=== PATIENT | male | born 1960 | race Caucasian/White ===

== ENCOUNTER 2020-05-12 20:03 | Observation (INO) | payer OTHER, SELFPAY ==
[2020-05-12 20:07] VITALS: BP 120/75; PULSE 71; RESP 20; TEMP 36.4; O2SAT 100
[2020-05-12 20:24] VITALS: BP 141/86; PULSE 84; RESP 20; O2SAT 100
--- NOTE | 2020-05-12 20:31 | ED.GENADULT ---
HPI - General Adult General Chief complaint: Unspecified Stated complaint: food stuck in throat Time Seen by Provider: 05/12/20 20:18 Source: patient History of Present Illness HPI narrative: Patient is a a 60 y/o male complaining of food stuck in throat starting about 6:00 PM tonight. He states that he was eating a piece of steak and then it got stuck. He tried drinking warm water and cold, which did not help. He is unable to keep water down. He denies any pain. Related Data Home Medications Medication Instructions Recorded Confirmed lisinopril 20 mg PO HS 05/12/20 05/12/20 Allergies Allergy/AdvReac Type Severity Reaction Status Date / Time No Known Allergies Allergy Verified 03/25/20 13:47 Review of Systems Constitutional: Constitutional: Denies chills, Denies fever(s), Denies headache(s) and Denies weakness Eyes: Eyes: Denies blurry vision ENT: Denies headache(s) and Denies neck pain Cardiovascular: Cardiovascular: Denies chest pain and Denies dyspnea Respiratory: Respiratory: Denies cough and Denies dyspnea Gastrointestinal: Gastrointestinal: Reports as per HPI, Denies abdominal pain, Reports dysphagia, Denies diarrhea, Denies nausea, Denies vomiting and Reports other (unable to swallow) Genitourinary: Genitourinary: Denies hematuria and Denies dysuria Musculoskeletal: Musculoskeletal: Denies back pain and Denies neck pain Neurologic: Denies headache(s) and Denies weakness PMFSH Past Medical History Medical History Anxiety Basal cell carcinoma of upper back Diverticulosis GERD (gastroesophageal reflux disease) History of diverticulitis Hypertension Surgical History Surgical History History of basal cell carcinoma (BCC) excision 2017 Family History Family History Father Hypertension Mother Family history of malignant neoplasm of stomach Other Carcinoma of colon Social History Social History Social History: patient has never smoked, does not do marijuana, and does not do drugs. He drinks alcohol very rarely. He would like to be a full code. He designates his Miguelina as his surrogate decision maker if needed Smoking status: Never smoker Second hand tobacco smoke exposure: No Alcohol intake: never Substance use: never Substance use type: does not use Gender identity (if verbalized by the patient): Male Sexual Orientation (if Verbalized by the Patient): Straight or Heterosexual Spiritual care concerns: No Exam Const: General: no acute distress and well developed Orientation/consciousness: oriented to person, oriented to place, oriented to time and patient oriented x3 HENMT: Head: normocephalic Ears: external ears normal General nose exam: Normal external nose present Eyes: General: appearance normal, both eyes and all related structures Conjunctivae: conjunctivae normal Neck: Neck: normal visual inspection and full ROM Chest: Chest palpation & inspection: normal inspection of the chest and no tenderness Resp: Effort & Inspection: normal respiratory effort and able to speak in complete sentences Cardio: Rate: regular rate Rhythm: regular rhythm GI: GI Palp: No abdominal tenderness and Yes Soft to palpation Skin: General skin exam: normal color and turgor normal Neuro: General: oriented to person, oriented to place, oriented to time and patient oriented x3 Cognition (Neuro): normal cognition Extrem: General: normal to inspection, full ROM and no pedal edema Psych: Appearance: grossly normal Mental Status: mental status grossly normal Affect: normal affect Course Consultations Consultation #1: Discussed with Dr. Fields, who agrees to consult and will plan EGD in AM. Date: 05/12/20 Time: 21:43 Consultation #2: Discussed with Dr. Gordon
[2020-05-12 21:02] LABS: Basophils Absolute Auto 0.1 K/mm3 (0.0-0.1); Basophils Percent Auto 1.4 % (0.2-1.2); Eosinophils Absolute Auto 0.2 K/mm3 (0-0.3); Eosinophils Percent Auto 1.9 % (0-4.4); Hematocrit 44.3 % (42.0-52.0); Hemoglobin 15.8 g/dL (14.0-18.0); Immature Granulocyte Absolute 0.06 K/mm3 (0.00-0.031); Immature Granulocyte Percent A 0.7 % (0-0.5); Lymphocytes Absolute Auto 2.55 K/mm3 (0.9-3.2); Lymphocytes Percent Auto 31.6 % (18.3-44.2); Mean Corpuscular HGB Conc 35.7 g/dl (32-36); Mean Corpuscular Hemoglobin 31.5 pg (26-34); Mean Corpuscular Volume 88.4 fl (80-100); Mean Platelet Volume 9.7 fl (7.4-10.4); Monocytes Absolute Auto 1.1 K/mm3 (0.1-0.6); Monocytes Percent Auto 13.2 % (2.6-8.5); Neutrophils Absolute Auto 4.1 K/mm3 (1.3-6.7); Neutrophils Percent Auto 51.2 % (45.5-73.1); Platelet Count Result 251 k/mm3 (150-375); Red Blood Count 5.01 M/mm3 (4.6-6.20); Red Cell Distribution Width 12.6 % (11.5-14.5); White Blood Count 8.1 K/mm3 (4.5-10.0)
[2020-05-12] MEDS: GLUCAGON FOR INJ 1 MG VIAL IV PUSH (21:02)
[2020-05-12 21:12] LABS: Anion Gap 10 mmol/L (8-16); Blood Urea Nitrogen 21 mg/dL (9-20); Calcium 9.3 mg/dL (8.4-10.2); Carbon Dioxide 23 mmol/L (22-30); Chloride 102 mmol/L (98-107); Estimated CRCL calculation 64 ml/min; Estimated Glomerular Filt Rate > 60; Glucose 118 mg/dL (75-110); Potassium 4.4 mmol/L (3.4-5.0); Sodium 135 mmol/L (137-145)
[2020-05-12 21:38] VITALS: BP 124/82; PULSE 109; RESP 20; O2SAT 100
[2020-05-12 22:25] VITALS: BP 153/98; PULSE 74; RESP 20; O2SAT 100
--- NOTE | 2020-05-12 23:49 | ADMGEN ---
This patient, Joshua Franklin, was admitted to 2 Medical Room 245-. Patient/family oriented to hospital policies and general routines including ID bracelet, bed and alarms, visiting hours, pain management, procedures, bathroom and other care routines, personal items, smoking policy, room service/diet, and visiting hours. Valuables list has been completed. Information on how to activate the Rapid Response Team has been discussed. Patient/Family are encouraged to report perceived risks to care and to ask questions if they do not understand what they are told or what they should do.
[2020-05-12 23:54] VITALS: BP 138/73; PULSE 72; RESP 12; TEMP 36.8; O2SAT 100
[2020-05-12 23:56] VITALS: BMI 26.7
[2020-05-13] VITALS (7 sets, daily range): BP systolic 101–159; BP diastolic 60–82; PULSE 60–88; RESP 14–18; TEMP 36.7–37; O2SAT 97–99
--- NOTE | 2020-05-13 09:16 | PM.SD ---
Same Day Admit/Disch: HPI History of Present Illness Chief complaint: esophageal obstruction Narrative: Joshua Franklin is a 60 year old male With a past medical history hypertension who presented the emergency room for food bolus sensation after eating a steak at 6:00 p.m. last night. The patient states that he still has a sensation and is unable to drink liquids or swallow his saliva. He does not have any nausea or vomiting with this. He last had an EGD about 12 years ago and has had a dilation before he thinks. Prior to tonight's episode, he has had some issues with swallowing and things almost gets that but usually he can get it down. He has no history of longstanding GERD symptoms but says he does feel little discomfort was spicy foods. He does not smoke or chew tobacco. He last had a colonoscopy March 19, 2020 which was reported negative. He denies nausea, vomiting, fevers, chills, chest pain, shortness of breath, dysuria, black stools, leg swelling, rashes, headache or blurred vision. Of note, he had a throat biopsy by Dr. Huertas that he reports was okay. [facility] Past Medical History Medical History Anxiety Basal cell carcinoma of upper back Diverticulosis GERD (gastroesophageal reflux disease) History of diverticulitis Hypertension Surgical History Surgical History History of basal cell carcinoma (BCC) excision 2016 Family History Family History Father Hypertension Mother Family history of malignant neoplasm of stomach Other Carcinoma of colon Social History Social History Social History: patient has never smoked, does not do marijuana, and does not do drugs. He drinks alcohol very rarely. He would like to be a full code. He designates his Miguelina as his surrogate decision maker if needed Smoking status: Never smoker Second hand tobacco smoke exposure: No Alcohol intake: never Substance use: never Substance use type: does not use Gender identity (if verbalized by the patient): Male Sexual Orientation (if Verbalized by the Patient): Straight or Heterosexual Spiritual care concerns: No Same Day Admit/Disch: Med Pre-admit Medications Home Medications Medication Instructions Recorded Confirmed Type lisinopril 20 mg PO HS 05/12/20 05/12/20 History Exam Narrative: Exam Narrative: General:Well developed well nourished patient resting comfortably in bed in no acute distress HEENT: Normocephalic, atraumatic, PERRL, Sclerae anicteric, oral mucosa moist. Neck: Supple Resp: CTA Heart: RRR with no murmurs Abd: Soft, nondistended. Mild discomfort in the epigastric area.Positive bowel sounds Skin: Warm and dry Extremities: No swelling, erythema or pain to palpation Neuro: Alert and Oriented x4 . CN 2-12 intact. No focal neurological deficits. DS: Data Data Completed and Pending Labs on day of discharge: Labs from last 24 hours 05/12/20 05/12/20 20:52 20:52 WBC 8.1 RBC 5.01 Hgb 15.8 Hct 44.3 MCV 88.4 MCH 31.5 MCHC 35.7 RDW 12.6 Plt Count 251 MPV 9.7 Immature Gran % (Auto) 0.7 H Neut % (Auto) 51.2 Lymph % (Auto) 31.6 [place] % (Auto) 13.2 H Eos % (Auto) 1.9 Baso % (Auto) 1.4 H Lymph # (Auto) 2.55 [place] # (Auto) 1.1 H Eos # (Auto) 0.2 Baso # (Auto) 0.1 Abs Immat Gran (auto) 0.06 H Absolute Neuts (auto) 4.1 Absolute Nucleated RBC 0.0 Nucleated RBC % 0.0 Sodium 135 L Potassium 4.4 Chloride 102 Carbon Dioxide 23 Anion Gap 10 BUN 21 H Creatinine 1.20 Estim Creat Clear Calc 64 Estimated GFR > 60 Glucose 118 H Calcium 9.3 DS: Summary Hospital Course Reason for hospitalization: Food bolus Hospital Course: patient is a 60-year-old male who presented emergency room for sens
[2020-05-13] MEDS: SODIUM CHLORIDE 0.9% IV 1,000 ML 125 ML IV CONT ×2 (10:18)
--- NOTE | 2020-05-13 11:47 | WPDGICN ---
Assessment and Plan Assessment and plan (1) Dysphagia: Code(s): R13.10 - Dysphagia, unspecified Status: Acute Assessment and Plan: Plan is mikhail EGD to assess difficulty swallowing. (2) Food impaction of esophagus: Code(s): T18.128A - Food in esophagus causing other injury, initial encounter Status: Acute Assessment and Plan: Patient unable to eat or swallow with impaction in the esophagus plan is to place patient NPO an EGD will be performed. (3) GERD (gastroesophageal reflux disease): Code(s): K21.9 - Gastro-esophageal reflux disease without esophagitis Status: Acute Assessment and Plan: Continue anti-reflux measures patient may benefit from long-term PPI use. Other measures will be evaluated at the time of endoscopy. GI Consult Note Consult date/time: 05/13/20 11:47 HPI: Joshua Franklin is a 60 year old male Seen in evaluation at the request of the emergency room. Patient in usual state of health till eating steak last evening. He subsequently felt that this was lodged in the mid chest. He was unable to eat or swallow subsequently. He states he occasionally has had difficulty causing him to chew fluid more thoroughly. He typically will eat smaller pieces of food. He has a distant history of heartburn. He denies any weight loss or bleeding. He did have an endoscopy several years ago that was unremarkable. He had a recent colonoscopy in March of 2020 that was also unremarkable. Family history is Significant his mother had gastric cancer. Review of Systems Review of Systems: All systems reviewed & are unremarkable except as noted in HPI and below PMFSH Past Medical History Medical History Anxiety Basal cell carcinoma of upper back Diverticulosis GERD (gastroesophageal reflux disease) History of diverticulitis Hypertension Surgical History Surgical History History of basal cell carcinoma (BCC) excision 2017 Family History Family History Father Hypertension Mother Family history of malignant neoplasm of stomach Other Carcinoma of colon Social History Social History Social History: patient has never smoked, does not do marijuana, and does not do drugs. He drinks alcohol very rarely. He would like to be a full code. He designates his Miguelina as his surrogate decision maker if needed Smoking status: Never smoker Second hand tobacco smoke exposure: No Alcohol intake: never Substance use: never Substance use type: does not use Gender identity (if verbalized by the patient): Male Sexual Orientation (if Verbalized by the Patient): Straight or Heterosexual Spiritual care concerns: No Meds Home Medications and Allergies Home Medications Medication Instructions Recorded Confirmed Type lisinopril 20 mg PO HS 05/12/20 05/12/20 History Allergies Allergy/AdvReac Type Severity Reaction Status Date / Time No Known Allergies Allergy Verified 03/25/20 13:47 Vital Signs Vital Signs - 24 hr 05/12/20 20:07 05/12/20 20:24 05/12/20 21:38 Temperature 97.6 F Pulse Rate 71 84 109 H Respiratory Rate 20 20 20 Blood Pressure 120/75 141/86 H 124/82 Pulse Oximetry 100 100 100 05/12/20 22:25 05/12/20 23:54 05/13/20 04:00 Temperature 98.2 F 98.6 F Pulse Rate 74 72 76 Respiratory Rate 20 12 16 Blood Pressure 153/98 H 138/73 125/82 Pulse Oximetry 100 100 98 05/13/20 10:00 Temperature 98.6 F Pulse Rate 81 Respiratory Rate 14 Blood Pressure 159/77 H Pulse Oximetry 98 Exam Narrative: Exam Narrative: Physical exm reveals patient to be alert. Vital signs stable. HEENT exam unremarkable. He is anicteric. Lungs are clear to auscultation and percussion. Heart is without murmur or extra sounds.
--- NOTE | 2020-05-13 12:17 | PC.NURSE ---
To GI Lab per antonio, IV intact and saline locked. Report given to BUTCH Stoll.
--- NOTE | 2020-05-13 12:25 | WPDANESEPPF ---
Anes - Initial Pre Proc Eval Procedure: Operation Date: 05/13/20 13:00 Proposed Procedures p Esophagogastroduodenoscopy - Danilo Fields MD Date/Time: 05/13/20 12:25 Surgeon: Unique Lozano PA-C Pre Op Diagnosis: esophageal obstruction Patient Data Age: 60 Gender: M Height: 5 ft 11 in Weight: 87.1 kg Last Vital Signs Temp 98.6 F 05/13/20 10:00 Pulse 81 05/13/20 10:00 Resp 14 05/13/20 10:00 BP 159/77 H 05/13/20 10:00 Pulse Ox 98 05/13/20 10:00 Allergies Allergy/AdvReac Type Severity Reaction Status Date / Time No Known Allergies Allergy Verified 03/25/20 13:47 Home Medications Medication Instructions Recorded Confirmed Type lisinopril 20 mg PO HS 05/12/20 05/12/20 History Laboratory Tests 05/12/20 05/12/20 20:52 20:52 WBC 8.1 K/mm3 K/mm3 (4.5-10.0) RBC 5.01 M/mm3 M/mm3 (4.6-6.20) Hgb 15.8 g/dL g/dL (14.0-18.0) Hct 44.3 % % (42.0-52.0) MCV 88.4 fl fl (80-100) MCH 31.5 pg pg (26-34) MCHC 35.7 g/dl g/dl (32-36) RDW 12.6 % % (11.5-14.5) Plt Count 251 k/mm3 k/mm3 (150-375) MPV 9.7 fl fl (7.4-10.4) Immature Gran % (Auto) 0.7 % H % (0-0.5) Neut % (Auto) 51.2 % % (45.5-73.1) Lymph % (Auto) 31.6 % % (18.3-44.2) [place] % (Auto) 13.2 % H % (2.6-8.5) Eos % (Auto) 1.9 % % (0-4.4) Baso % (Auto) 1.4 % H % (0.2-1.2) Lymph # (Auto) 2.55 K/mm3 K/mm3 (0.9-3.2) [place] # (Auto) 1.1 K/mm3 H K/mm3 (0.1-0.6) Eos # (Auto) 0.2 K/mm3 K/mm3 (0-0.3) Baso # (Auto) 0.1 K/mm3 K/mm3 (0.0-0.1) Abs Immat Gran (auto) 0.06 K/mm3 H K/mm3 (0.00-0.031) Absolute Neuts (auto) 4.1 K/mm3 K/mm3 (1.3-6.7) Absolute Nucleated RBC 0.0 K/mm3 K/mm3 (0.0-0.012) Nucleated RBC % 0.0 % % (0.0-0.2) Sodium 135 mmol/L L mmol/L (137-145) Potassium 4.4 mmol/L mmol/L (3.4-5.0) Chloride 102 mmol/L mmol/L (98-107) Carbon Dioxide 23 mmol/L mmol/L (22-30) Anion Gap 10 mmol/L mmol/L (8-16) BUN 21 mg/dL H mg/dL (9-20) Creatinine 1.20 mg/dL mg/dL (0.7-1.3) Estim Creat Clear Calc 64 ml/min ml/min Estimated GFR > 60 (59 - ) Glucose 118 mg/dL H mg/dL (75-110) Calcium 9.3 mg/dL mg/dL (8.4-10.2) Patient hx anesthesia problems: none Family hx anesthesia problems: none PMFSH Past Medical History Medical History Anxiety Basal cell carcinoma of upper back Diverticulosis GERD (gastroesophageal reflux disease) History of diverticulitis Hypertension Surgical History Surgical History History of basal cell carcinoma (BCC) excision 2017 Family History Family History Father Hypertension Mother Family history of malignant neoplasm of stomach Other Carcinoma of colon Social History Social History Social History: patient has never smoked, does not do marijuana, and does not do drugs. He drinks alcohol very rarely. He would like to be a full code. He designates his Miguelina as his surrogate decision maker if needed Smoking status: Never smoker Second hand tobacco smoke exposure: No Alcohol intake: never Substance use: never Substance use type: does not use Gender identity (if verbalized by the patient): Male Sexual Orientation (if Verbalized by the Patient): Straight or Heterosexual Spiritual care concerns: No Anes - Eval Final PreProcedure Day of Procedure 05/13/20 12:25 Patient weight: normal Heart: regular rate and rhythm Lungs: clear to auscultation Airway: Mallampati scale class II Neurological: alert and oriented Last oral intake: >/= 8 hours ASA classification: II Emergent: no
[2020-05-13] MEDS: LACTATED RINGERS 1,000 ML 150 ML IV CONT (12:51)
--- NOTE | 2020-05-13 14:21 | PC.NURSE ---
Returned from GI Lab.
== END 2020-05-13 17:40 | disposition home or self-care (01) ==
LOC: ANHED 22:09 → ANH2MED 23:26
PROVIDERS: Internal Medicine Gastroenterology; Admitting Provider Internal Medicine; Emergency Provider Emergency Medicine; PCP Family Medicine; Visit Provider Family Medicine
PROC: 0DJ08ZZ Inspection of Upper Intestinal Tract, Via Natural or Artificial Opening Endoscopic (ICD-10-PCS; CPT 43235; principal; 2020-05-13 13:00)
DX: T18.128A Food in esophagus causing other injury, initial encounter (principal); K22.2 Esophageal obstruction; R13.10 Dysphagia, unspecified; K21.9 Gastro-esophageal reflux disease without esophagitis; I10 Essential (primary) hypertension
CPT/HCPCS: 43247; 43450; 36415; 80048; 85025; 96361; 96374; 99285; G0378; J0131; J1610; J2704; J7030; J7120

== ENCOUNTER 2022-04-23 08:17 | Emergency (ER) | payer OTHER, SELFPAY ==
[2022-04-23 08:28] VITALS: BP 139/91; PULSE 64; RESP 16; TEMP 37.1; O2SAT 97
--- NOTE | 2022-04-23 08:34 | ED.EYEPROB ---
HPI - Eye Problem General Chief complaint: Eye Problems Stated complaint: EYE PAIN Time Seen by Provider: 04/23/22 08:32 Source: patient and RN notes reviewed Mode of arrival: ambulatory Limitations: no limitations History of Present Illness HPI Narrative: 62-year-old male presents with concern for left eye redness, discharge, irritation. Reports he noticed it last night. Reports he had to get up several times overnight to clean the drainage from the eye. Reports it was stuck shut when he woke up. He denies injury, trauma, foreign body. He denies vision changes. He denies upper respiratory symptoms, sinus congestion or pain chief complaint: eye redness Related Data Allergies Allergy/AdvReac Type Severity Reaction Status Date / Time No Known Allergies Allergy Verified 04/14/22 10:38 Review of Systems Review of Systems: CONSTITUTIONAL: Denies malaise, chills, sweats, or fever. EYES: Denies visual changes. Reports left eye redness, irritation, discharge. ENT: Denies rhinorrhea, congestion, sinus pain, otalgia or sore throat. SKIN: Denies rash or itching. NEUROLOGIC: Denies numbness, weakness, or headache. PSYCHIATRIC: Denies anxiety or depression. All systems reviewed & are unremarkable except as noted in HPI and below PMFSH Past Medical History Medical History Anxiety Basal cell carcinoma of upper back Diverticulosis GERD (gastroesophageal reflux disease) History of diverticulitis Hypertension Prediabetes Surgical History Surgical History History of basal cell carcinoma (BCC) excision 2016 History of esophageal dilatation 05/2020 Family History Family History Father Hypertension Mother Family history of malignant neoplasm of stomach Other Carcinoma of colon Social History Social History Social History: patient has never smoked, does not do marijuana, and does not do drugs. He drinks alcohol very rarely. He would like to be a full code. He designates his Miguelina as his surrogate decision maker if needed Smoking status: Never smoker Second hand tobacco smoke exposure: No Alcohol intake: never Alcohol use details: consumes 1 beer occasionally Substance use: never Substance use type: does not use Gender identity (if verbalized by the patient): Male Sexual Orientation (if Verbalized by the Patient): Straight or Heterosexual Spiritual care concerns: No Comments At time of signature, agree with nursing past medical, surgical, social and family history. There is no relevant family history pertinent to the presenting complaint Exam Narrative: GENERAL: Well-appearing, well-nourished, and in no acute distress. HEAD: Normocephalic, atraumatic. EYES: PERRLA, right conjunctive a and sclera clear, and EOMI. No nystagmus. Left sclera and conjunctivae injected. Upper and lower eyelid unremarkable, no periorbital edema noted ENT: Nares clear, turbinates pink, no rhinorrhea or epistaxis. Mucous membranes moist. TM pearly mobley with sharp light reflex bilaterally; no tragal tenderness. NECK: Supple. CHEST: No respiratory distress. Speaks in full sentences. HEART: Regular rate and rhythm. SKIN: Warm, dry, no visible rash. NEURO: Alert and oriented x3. PSYCH: Normal mood and affect Course Course Emergency Course: Patient is aware of diagnosis, understands and agrees to treatment plan. Anticipatory guidance given. Patient agrees to follow-up as directed and is aware of reasons to seek care at the emergency department. Portions of this record may have been created with voice recognition software Level of Care: Express Care Visit Vital Signs Vital signs: Vital Signs Temperature 98.8 F 04/23/22 08:28 Pulse Rate 64 04/23/22 08:28 Respiratory Rate 16
== END 2022-04-23 08:47 | disposition home or self-care (01) ==
PROVIDERS: Emergency Provider Nurse Practitioner; PCP Family Medicine
DX: H10.9 Unspecified conjunctivitis (principal); K21.9 Gastro-esophageal reflux disease without esophagitis; I10 Essential (primary) hypertension; R73.03 Prediabetes; Z85.828 Personal history of other malignant neoplasm of skin
CPT/HCPCS: 99213; G0463

== ENCOUNTER 2023-03-28 23:58 | Day surgery (SDC) | payer OTHER, SELFPAY ==
[2023-03-29 00:09] VITALS: BP 154/92; PULSE 93; RESP 16; TEMP 36.8; O2SAT 96
--- NOTE | 2023-03-29 00:30 | ED.SKABFB ---
HPI - Skin/Abscess/Foreign Bdy General Chief complaint: Skin/Abscess/Foreign Body <Naila Bernal PA-C - Last Filed: 03/29/23 03:15> Stated complaint: food bolus <Naila Bernal PA-C - Last Filed: 03/29/23 03:15> Time Seen by Provider: 03/29/23 00:18 <OPAL Hernandez Last Filed: 03/29/23 03:15> History of Present Illness HPI narrative: 63-year-old male with history of hypertension and GERD reports for evaluation for a food bolus since 6 PM. Patient states he was eating a roast when he experienced a sensation of food stuck in his throat in his distal esophagus. States this is happened before approximately 3 years ago, he was admitted and had Dr. Fields do an EGD to retrieve the steak. He is not sure if he had to have his esophagus stretched. He reports attempting to vomit to remove the steak without success. He does state he has tried to drink soda at home without relief. Denies difficulty breathing. <OPAL Hernandez Last Filed: 03/29/23 03:15> Related Data Allergies/Adverse reactions: Allergies Allergy/AdvReac Type Severity Reaction Status Date / Time No Known Allergies Allergy Verified 03/29/23 00:34 <Naila Bernal PA-C - Last Filed: 03/29/23 03:15> Review of Systems Review of Systems: CONSTITUTIONAL: Denies fever, chills EYES: Denies visual changes, redness, or discharge. ENT: Denies rhinorrhea, congestion, sore throat, or otalgia. CARDIOVASCULAR: Denies chest pain, palpitations, or edema. RESPIRATORY: Denies cough or dyspnea. GASTROINTESTINAL: See HPI GENITOURINARY: Denies dysuria or hematuria. SKIN: Denies rash or itching. MUSCULOSKELETAL: Denies back pain, joint pain, or myalgia. NEUROLOGIC: Denies headache, numbness, dizziness, or weakness. PSYCHIATRIC: Denies anxiety or depression. <OPAL Hernandez Last Filed: 03/29/23 03:15> [facility] Past Medical History Medical History: Medical History Anxiety Basal cell carcinoma of upper back Diverticulosis GERD (gastroesophageal reflux disease) History of diverticulitis Hypertension Prediabetes <Naila Bernal PA-C - Last Filed: 03/29/23 03:15> Surgical History Surgical History: Surgical History History of basal cell carcinoma (BCC) excision 2017 History of esophageal dilatation 05/2020 <Naila Bernal PA-C - Last Filed: 03/29/23 03:15> Family History Family History: Family History Father Hypertension Mother Family history of malignant neoplasm of stomach Other Carcinoma of colon <Naila Bernal PA-C - Last Filed: 03/29/23 03:15> Social History Social History: Social History Social History: patient has never smoked, does not do marijuana, and does not do drugs. He drinks alcohol very rarely. He would like to be a full code. He designates his Miguelina as his surrogate decision maker if needed Smoking status: Never smoker Second hand tobacco smoke exposure: No Alcohol intake: never Alcohol use details: consumes 1 beer occasionally Substance use: never Substance use type: does not use Gender identity (if verbalized by the patient): Male Sexual Orientation (if Verbalized by the Patient): Straight or Heterosexual Spiritual care concerns: No <Naila Bernal PA-C - Last Filed: 03/29/23 03:15> Exam Narrative: GENERAL: Well-appearing, in no acute distress. Patient resting comfortably in exam bed. He is pleasant and conversational. HEAD: Normocephalic EYES: PERRLA ENT: Nares clear. Mucous membranes moist. Oropharynx without tonsillar hypertrophy exudate or other lesions. NECK: Supple. CHEST: No respiratory distress. Clear to auscultation, no adventitious breath sounds. HEART: Regular rate
[2023-03-29 01:13] LABS: Basophils Absolute Auto 0.1 K/mm3 (0.0-0.1); Eosinophils Absolute Auto 0.1 K/mm3 (0-0.3); Eosinophils Percent Auto 0.5 % (0-4.4); Hematocrit 45.4 % (42.0-52.0); Immature Granulocyte Absolute 0.07 K/mm3 (0.00-0.031); Immature Granulocyte Percent A 0.6 % (0-0.5); Lymphocytes Absolute Auto 2.55 K/mm3 (0.9-3.2); Lymphocytes Percent Auto 22.1 % (18.3-44.2); Mean Corpuscular HGB Conc 35.2 g/dl (32-36); Mean Corpuscular Hemoglobin 31.5 pg (26-34); Mean Corpuscular Volume 89.4 fl (80-100); Mean Platelet Volume 9.9 fl (7.4-10.4); Monocytes Absolute Auto 1.2 K/mm3 (0.1-0.6); Neutrophils Absolute Auto 7.6 K/mm3 (1.3-6.7); Neutrophils Percent Auto 65.8 % (45.5-73.1); Platelet Count Result 244 k/mm3 (150-375); Red Blood Count 5.08 M/mm3 (4.6-6.20); Red Cell Distribution Width 12.5 % (11.5-14.5); White Blood Count 11.6 K/mm3 (4.5-10.0)
[2023-03-29 01:22] LABS: Alanine Aminotransferase 49 U/L (6-50); Alkaline Phosphatase 82 U/L (38-126); Anion Gap 7 mmol/L (8-16); Aspartate Amino Transferase 45 U/L (17-59); Bilirubin,Total 1.2 mg/dL (0.2-1.3); Blood Urea Nitrogen 18 mg/dL (9-20); Calcium 9.4 mg/dL (8.4-10.2); Carbon Dioxide 25 mmol/L (22-30); Chloride 107 mmol/L (98-107); Estimated CRCL calculation 63 ml/min; Estimated Glomerular Filt Rate > 60; Glucose 109 mg/dL (65-110); Potassium 4.2 mmol/L (3.4-5.0); Sodium 139 mmol/L (137-145)
--- NOTE | 2023-03-29 04:24 | PC.NURSE ---
0230 Pt was informed by Naila IVY about the plan to have the pt stay in room until GI arrives at 0600. Pt agreed to plan and is resting in room.
[2023-03-29 06:53] VITALS: BP 158/92; PULSE 74; RESP 17; O2SAT 97
[2023-03-29 07:25] VITALS: BP 168/82; PULSE 69; RESP 18; TEMP 36.2; O2SAT 97
[2023-03-29] MEDS: LACTATED RINGERS 1,000 ML 150 ML IV CONT (07:31)
--- NOTE | 2023-03-29 07:51 | WPDANESEPPF ---
Anes - Initial Pre Proc Eval Procedure: Operation Date: 03/29/23 14:15 Proposed Procedures p Esophagogastroduodenoscopy for Food Bolus - Selvin Gonzalez MD Date/Time: 03/29/23 07:51 Surgeon: Selvin Gonzalez MD Pre Op Diagnosis: food bolus Patient Data Age: 63 Gender: M Height: 1.83 m Weight: 86 kg Last Vital Signs Temp 36.2 C L 03/29/23 07:25 Pulse 69 03/29/23 07:25 Resp 18 03/29/23 07:25 BP 168/82 H 03/29/23 07:25 Pulse Ox 97 03/29/23 07:25 O2 Del Method Room Air 03/29/23 00:09 Allergies Allergy/AdvReac Type Severity Reaction Status Date / Time No Known Allergies Allergy Verified 03/29/23 07:24 Home Medications Medication Instructions Recorded Confirmed Type lisinopril 20 mg tablet 20 mg PO DAILY #90 tabs 04/14/22 03/29/23 Rx polymyxin B sulfate 10,000 1 drp LEFT EYE Q4H 7 days #10 mL 04/23/22 03/29/23 Rx unit-trimethoprim 1 mg/mL eye drops (Polytrim) hydrochlorothiazide 25 mg tablet 25 mg PO DAILY #90 tabs 01/19/23 03/29/23 Rx Laboratory Tests 03/29/23 01:07 WBC 11.6 H K/mm3 (4.5-10.0) RBC 5.08 M/mm3 (4.6-6.20) Hgb 16.0 g/dL (14.0-18.0) Hct 45.4 % (42.0-52.0) MCV 89.4 fl (80-100) MCH 31.5 pg (26-34) MCHC 35.2 g/dl (32-36) RDW 12.5 % (11.5-14.5) Plt Count 244 k/mm3 (150-375) MPV 9.9 fl (7.4-10.4) Immature Gran % (Auto) 0.6 H % (0-0.5) Neut % (Auto) 65.8 % (45.5-73.1) Lymph % (Auto) 22.1 % (18.3-44.2) [place] % (Auto) 10.0 H % (2.6-8.5) Eos % (Auto) 0.5 % (0-4.4) Baso % (Auto) 1.0 % (0.2-1.2) Lymph # (Auto) 2.55 K/mm3 (0.9-3.2) [place] # (Auto) 1.2 H K/mm3 (0.1-0.6) Eos # (Auto) 0.1 K/mm3 (0-0.3) Baso # (Auto) 0.1 K/mm3 (0.0-0.1) Abs Immat Gran (auto) 0.07 H K/mm3 (0.00-0.031) Absolute Neuts (auto) 7.6 H K/mm3 (1.3-6.7) Absolute Nucleated RBC 0.0 K/mm3 (0.0-0.012) Nucleated RBC % 0.0 % (0.0-0.2) Sodium 139 mmol/L (137-145) Potassium 4.2 mmol/L (3.4-5.0) Chloride 107 mmol/L (98-107) Carbon Dioxide 25 mmol/L (22-30) Anion Gap 7 L mmol/L (8-16) BUN 18 mg/dL (9-20) Creatinine 1.20 mg/dL (0.7-1.3) Estim Creat Clear Calc 63 ml/min Estimated GFR > 60 (59 - ) Glucose 109 mg/dL (65-110) Calcium 9.4 mg/dL (8.4-10.2) Total Bilirubin 1.2 mg/dL (0.2-1.3) AST 45 U/L (17-59) ALT 49 U/L (6-50) Alkaline Phosphatase 82 U/L (38-126) Total Protein 9.0 H g/dL (6.3-8.2) Albumin 5.0 g/dL (3.5-5.1) Patient hx anesthesia problems: none Family hx anesthesia problems: none Results Review: All pre-operative results and documents have been reviewed as part of the pre-operative evaluation. [facility] Past Medical History Medical History Anxiety Basal cell carcinoma of upper back Diverticulosis GERD (gastroesophageal reflux disease) History of diverticulitis Hypertension Prediabetes Surgical History Surgical History History of basal cell carcinoma (BCC) excision 2016 History of esophageal dilatation 05/2020 Family History Family History Father Hypertension Mother Family history of malignant neoplasm of stomach Other Carcinoma of colon Social History Social History Social History: patient has never smoked, does not do marijuana, and does not do drugs. He drinks alcohol very rarely. He would like to be a full code. He designates his Miguelina as his surrogate decision maker if needed Smoking status: Never smoker Second hand tobacco smoke exposure: No Alcohol intake: never Alcohol use details: consumes 1 beer occasionally Substance use: never Substance use type:
--- NOTE | 2023-03-29 08:14 | PM.HPGS ---
History of Present Illness History of Present Illness Consent: Risks, benefits, and alternatives have been discussed and questions answered. Patient agrees to proceed with procedure. Chief complaint: food bolus Narrative: Joshua Franklin is a 63 year old male here with food bolus after had roast for dinner last night. He had another episode of food bolus in 2019, EGD showed stricture, given ppi for few weeks but not longer using and did not have repeat EGD. Lately with more gerd symptoms. Review of Systems Constitutional: Constitutional: Denies headache(s) and Denies weakness Eyes: Eyes: Denies blurry vision ENT: Reports Normal hearing present, Denies headache(s) and Denies neck pain Cardiovascular: Cardiovascular: Denies chest pain and Denies dyspnea Respiratory: Respiratory: Denies dyspnea Gastrointestinal: Gastrointestinal: Reports no additional gastrointestinal complaints Genitourinary: Genitourinary: Denies dysuria Musculoskeletal: Musculoskeletal: Denies neck pain Integumentary/Breasts: Skin/Breast: Denies dry skin Neurologic: Reports Normal hearing present, Denies headache(s) and Denies weakness Psychiatric: Psychiatric: Denies anxiety Endocrine: Endocrine: Denies change in body appearance Hematologic/Lymphatic: Hematologic/Lymphatic: Denies easy bleeding Allergic/Immunologic: Allergic/Immunologic: Denies urticaria PMFSH Past Medical History Medical History Anxiety Basal cell carcinoma of upper back Diverticulosis GERD (gastroesophageal reflux disease) History of diverticulitis Hypertension Prediabetes Surgical History Surgical History History of basal cell carcinoma (BCC) excision 2017 History of esophageal dilatation 05/2020 Family History Family History Father Hypertension Mother Family history of malignant neoplasm of stomach Other Carcinoma of colon Social History Social History Social History: patient has never smoked, does not do marijuana, and does not do drugs. He drinks alcohol very rarely. He would like to be a full code. He designates his Miguelina as his surrogate decision maker if needed Smoking status: Never smoker Second hand tobacco smoke exposure: No Alcohol intake: never Alcohol use details: consumes 1 beer occasionally Substance use: never Substance use type: does not use Gender identity (if verbalized by the patient): Male Sexual Orientation (if Verbalized by the Patient): Straight or Heterosexual Spiritual care concerns: No Meds Home Medications and Allergies Home Medications Medication Instructions Recorded Confirmed Type lisinopril 20 mg tablet 20 mg PO DAILY #90 tabs 04/14/22 03/29/23 Rx polymyxin B sulfate 10,000 1 drp LEFT EYE Q4H 7 days #10 mL 04/23/22 03/29/23 Rx unit-trimethoprim 1 mg/mL eye drops (Polytrim) hydrochlorothiazide 25 mg tablet 25 mg PO DAILY #90 tabs 01/19/23 03/29/23 Rx Allergies Allergy/AdvReac Type Severity Reaction Status Date / Time No Known Allergies Allergy Verified 03/29/23 07:24 Vital Signs Vital Signs - 24 hr 03/29/23 00:09 03/29/23 06:53 03/29/23 07:25 Temperature 98.3 F 97.2 F L Pulse Rate 93 74 69 Respiratory Rate 16 17 18 Blood Pressure 154/92 H 158/92 H 168/82 H Pulse Oximetry 96 97 97 Oxygen Delivery Room Air Exam Const: General: comfortable and no acute distress HENMT: Face/Nose/Sinus: Normal nares present Eyes: General: appearance normal, both eyes and all related structures Neck: Neck: no JVD Resp: Auscultation: clear to auscultation bilaterally Cardio: Rate: regular rate Rhythm: regular rhythm GI: Inspection: non-distended GI Palp: Yes Soft to palpation Skin: General skin exam: normal color Neuro: Gener
[2023-03-29 08:33] VITALS: BP 96/52; PULSE 74; RESP 22; O2SAT 96
[2023-03-29 08:43] VITALS: BP 104/61; PULSE 66; RESP 20; O2SAT 97
[2023-03-29 08:53] VITALS: BP 113/61; PULSE 65; RESP 20; O2SAT 99
--- NOTE | 2023-03-30 09:56 | WPDANESPN ---
Anes - Prog Note Post-Op Date/Time: 03/30/23 09:56 Cardiovascular status: normal Respiratory status: normal Airway patency: baseline Mental status: baseline Post-Op hydration status: normal Vital Signs: Last Vital Signs Temp 97.2 F L 03/29/23 07:25 Pulse 65 03/29/23 08:53 Resp 20 03/29/23 08:53 BP 113/61 03/29/23 08:53 Pulse Ox 99 03/29/23 08:53 O2 Del Method Room Air 03/29/23 08:53 Pain Score (VAS): 0/10 Laboratory Tests 03/29/23 01:07 03/29/23 01:07 Post-procedural complaints: none Patient Feedback: Patient satisfied with anesthetic care.
== END 2023-03-29 09:12 | disposition home or self-care (01) ==
LOC: ANHED 03-29 02:09 → ANHENDO 03-29 06:17
PROVIDERS: Emergency Provider Physician Assistant; PCP Family Medicine; Visit Provider Internal Medicine Gastroenterology
PROC: 0DJ08ZZ Inspection of Upper Intestinal Tract, Via Natural or Artificial Opening Endoscopic (ICD-10-PCS; CPT 43235; principal; 2023-03-29 14:15)
DX: T18.128A Food in esophagus causing other injury, initial encounter (principal); K20.0 Eosinophilic esophagitis; I10 Essential (primary) hypertension; R73.03 Prediabetes; F41.9 Anxiety disorder, unspecified
CPT/HCPCS: 43249; 43239; 36415; 80053; 85025; 88305; 99285; C1726; J2704; J7120

== ENCOUNTER 2023-06-16 05:45 | Day surgery (SDC) | payer OTHER, SELFPAY ==
[2023-04-13 15:23] VITALS: BMI 26.5
[2023-05-30 08:59] VITALS: BMI 26.6
--- NOTE | 2023-06-16 07:05 | WPDANESEPPF ---
Anes - Initial Pre Proc Eval Procedure: Operation Date: 06/16/23 07:30 Proposed Procedures p Esophagogastroduodenoscopy - Selvin Gonzalez MD Date/Time: 06/16/23 07:05 Surgeon: Selvin Gonzalez MD Pre Op Diagnosis: History of Esophagitis Patient Data Age: 63 Gender: M Height: 1.8 m Weight: 85.5 kg Allergies Allergy/AdvReac Type Severity Reaction Status Date / Time No Known Allergies Allergy Verified 06/16/23 06:16 Home Medications Medication Instructions Recorded Confirmed Type omeprazole 40 mg capsule,delayed 40 mg PO .daily #30 caps 03/29/23 06/16/23 Rx release lisinopril 10 mg tablet 10 mg PO DAILY #90 tabs 05/03/23 06/16/23 Rx multivitamin 1 tablet PO DAILY 05/30/23 06/16/23 History Patient hx anesthesia problems: none Family hx anesthesia problems: none Results Review: All pre-operative results and documents have been reviewed as part of the pre-operative evaluation. [facility] Past Medical History Medical History (Updated 06/09/23 @ 09:43 by Selvin Gonzalez MD) Anxiety Basal cell carcinoma of upper back Colon cancer screening Eosinophilic esophagitis Food impaction of esophagus GERD (gastroesophageal reflux disease) History of diverticulitis Hypertension Loose stools Prediabetes Surgical History Surgical History History of basal cell carcinoma (BCC) excision 2017 History of esophageal dilatation x2 - 03/2023, 05/2020 Family History Family History Father Hypertension Mother Family history of malignant neoplasm of stomach Other Carcinoma of colon Social History Social History Social History: patient has never smoked, does not do marijuana, and does not do drugs. He drinks alcohol very rarely. He would like to be a full code. He designates his Miguelina as his surrogate decision maker if needed Smoking status: Never smoker Second hand tobacco smoke exposure: No Alcohol intake: never Alcohol use details: consumes 1 beer occasionally Substance use: never Substance use type: does not use Lack of Transportation: No Lack of Food: Never True Current Housing: I Have Housing Concerned About Future Housing: No Difficulty Paying Gas/Electric Bills: No Difficulty Paying for Meds: No Currently Unemployed: No Education: Bachelor's Degree Difficulty w/ Childcare or Family Care: No Living arrangements: with family Occupation/Education: retired Gender identity (if verbalized by the patient): Male Sexual Orientation (if Verbalized by the Patient): Straight or Heterosexual Spiritual care concerns: No Agree to blood products: Yes Anes - Eval Final PreProcedure Day of Procedure 06/16/23 07:05 Patient weight: overweight Heart: regular rate and rhythm Lungs: clear to auscultation Airway: Mallampati scale class II Neurological: alert and oriented Last oral intake: >/= 8 hours ASA classification: II Emergent: no Anesthetic plan: proceed Anesthesia type and monitoring: general GIVS and standard monitoring Results Review: All pre-operative results and documents have been reviewed as part of the pre-operative evaluation. Informed Consent: The patient's anesthetic plan and its attendant risks and benefits were discussed with the patient/family/POA. Questions were solicited and answers provided to the satisfaction of the patient/family/POA.
[2023-06-16 07:17] VITALS: BP 159/101; PULSE 56; RESP 16; TEMP 36.9; O2SAT 99
[2023-06-16] MEDS: LACTATED RINGERS 1,000 ML 150 ML IV CONT (07:20)
--- NOTE | 2023-06-16 07:23 | WPDHPUPDATE1 ---
History and Physical Update Update Date/Time: 06/16/23 07:23 History and Physical has been reviewed, including an updated exam of the patient. There are NO changes in the patient's condition. Risks, benefits, and alternatives have been discussed and questions answered. Patient agrees to proceed with procedure.
[2023-06-16 07:35] VITALS: BP 114/77; PULSE 66; RESP 16; TEMP 36.6; O2SAT 95
[2023-06-16 07:45] VITALS: BP 115/71; PULSE 56; RESP 16; O2SAT 98
[2023-06-16 07:55] VITALS: BP 126/92; PULSE 60; RESP 16; O2SAT 98
--- NOTE | 2023-06-16 10:55 | WPDANESPN ---
Anes - Prog Note Post-Op Date/Time: 06/16/23 10:55 Cardiovascular status: normal Respiratory status: normal Airway patency: baseline Mental status: baseline Post-Op hydration status: normal Vital Signs: Last Vital Signs Temp 36.6 C 06/16/23 07:35 Pulse 60 06/16/23 07:55 Resp 16 06/16/23 07:55 BP 126/92 H 06/16/23 07:55 Pulse Ox 98 06/16/23 07:55 O2 Del Method Room Air 06/16/23 07:55 O2 Flow Rate 2 06/16/23 07:35 Pain Score (VAS): 0 I/O: Intake & Output 06/15/23 06/16/23 06/16/23 23:59 07:59 15:59 Intake Total 300 Balance 300 Post-procedural complaints: none Patient Feedback: Patient satisfied with anesthetic care. Other Findings: Patient vital signs back to baseline. Patient denies nausea and vomiting. Patient's pain under control. Patient OK for discharge.
== END 2023-06-16 08:10 | disposition home or self-care (01) ==
PROVIDERS: PCP Family Medicine; Visit Provider Internal Medicine Gastroenterology
PROC: 0DJ08ZZ Inspection of Upper Intestinal Tract, Via Natural or Artificial Opening Endoscopic (ICD-10-PCS; CPT 43235; principal; 2023-06-16 07:30)
DX: R13.19 Other dysphagia (principal)
CPT/HCPCS: 43239

== ENCOUNTER 2023-06-16 09:00 | Outpatient (NON) | payer OTHER, SELFPAY | END 2023-06-16 09:01 | disposition home or self-care (01) | LOC: ANHLAB 06-17 08:37 | PROVIDERS: PCP Family Medicine; Visit Provider Internal Medicine Gastroenterology | DX: K21.9 Gastro-esophageal reflux disease without esophagitis (principal) | CPT/HCPCS: 88305 ==

== ENCOUNTER 2025-03-06 13:34 | Outpatient (CLI) | payer OTHER, SELFPAY ==
--- OUTSIDE RECORDS SUMMARY | 2025-03-06 13:36 | XMS_ITS | Clinical Summary ---
Author Organization [facility] [address] Address [address] [place] [id number] Care Team Providers Care Assorter Laundry Name Role Phone Ken Johnson MD Primary Care Provider Allergies No known active allergies Medications lisinopriL (PRINIVIL,ZESTR IL) 10 mg tablet Take 1 tablet (10 mg total) by mouth daily Active omeprazole (PriLOSEC) 40 mg capsule 4 Active triamcinolone (KENALOG) 0.1 % creamIndication s:skin rash Apply topically 2 (two) times a day for 10 days 80 g 4 Active Active Problems No known active problems Social History Tobacco Use Types Packs/Day Years Used Date Smoking Tobacco: Never Assessed Sex and Gender Information Value Date Recorded Sex Assigned at Not on file Legal Sex Male 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 Gender Identity Not on file Sexual Orientation Not on file Last Filed Vital Signs Vital Sign Reading Time Taken Comments Blood Pressure 161/85 09/13/2024 9:07 AM SCHOOL SPEECH LANGUAGE PATHOLOGIST Pulse 66 09/13/2024 9:07 AM SCHOOL SPEECH LANGUAGE PATHOLOGIST Temperature 36.8 C (98.2 F) 09/13/2024 9:07 AM SCHOOL SPEECH LANGUAGE PATHOLOGIST Respiratory Rate 20 09/13/2024 9:07 AM SCHOOL SPEECH LANGUAGE PATHOLOGIST Oxygen Saturation 98% 09/13/2024 9:07 AM SCHOOL SPEECH LANGUAGE PATHOLOGIST Inhaled Oxygen Concentration - - Weight 87.1 kg (192 lb) 09/13/2024 9:07 AM SCHOOL SPEECH LANGUAGE PATHOLOGIST Height 180.3 cm (5' 11) 09/13/2024 9:07 AM SCHOOL SPEECH LANGUAGE PATHOLOGIST Body Mass Index 26.78 09/13/2024 9:07 AM SCHOOL SPEECH LANGUAGE PATHOLOGIST Plan of Treatment Health Maintenance Due Date Last Done Comments Colon Cancer Screening-Colonoscopy 1962 Depression Screening 1962 Hepatitis C Screening 1962 Prostate Cancer Screening-PSA 1962 Hepatitis B Screening 02/04/1980 Regular Well Visit/Exam 18-64 02/04/1980 Zoster Vaccine (1 of 2) 02/04/2012 Influenza Vaccine (Season Ended) 2025 07/14/2023, 07/29/2022, 07/09/2021, Additional history exists DTaP/Tdap/Td Vaccine (3 - Td or Tdap) 04/24/2033 04/24/2023, 10/10/2012, 05/24/2003 Pneumococcal vaccine <65 Aged Out No longer eligible based on patient's age to complete this [place] [place] [address] [facility] [employer] Care Teams Assorter Laundry Relationship Specialty Start Date End Date Ken Johnson MD [facility] [place] [address] PCP - General Family Practice 09/13/24
--- OUTSIDE RECORDS SUMMARY | 2025-03-06 13:36 | XMS_ITS | Clinical Summary ---
Author Organization [facility] Address [address] [place] [address] Care Team Providers Care Aviation Manager Name Role Phone Unavailable Primary Care Provider Unavailabl e Source Comments [facility],non-owned Affiliates and Associated Physician Practices is amultiple site organization consisting of ambulatory clinics and hospital sitesin [place] and [place]. This disclosure is being madepursuant to the Care Everywhere program and may not contain all information available regarding this patient. Last updated 18.[facility] Allergies No known active allergies Medications * Be aware that medications may not be up to date on this document. Alwaysverify current medications with the patient. lisinopril (PRINIVIL; ZESTRIL) 20 MG tablet Take 20 mg by mouth once daily Active Social History Tobacco Use Types Packs/Day Years Used Date Smoking Tobacco: Never Smokeless Tobacco: Never Sex and Gender Information Value Date Recorded Sex Assigned at Not on file Legal Sex Male 10:38 AM AIR BRUSH DECORATOR Gender Identity Not on file Sexual Orientation Not on file Last Filed Vital Signs Vital Sign Reading Time Taken Comments Blood Pressure 118/78 12/17/2019 10:51 AM CDT Pulse 62 12/17/2019 10:51 AM CDT Temperature 36.9 C (98.4 F) 12/17/2019 10:51 AM CDT Respiratory Rate 16 11/22/2018 2:42 PM AIR BRUSH DECORATOR Oxygen Saturation 97% 12/17/2019 10:51 AM CDT Inhaled Oxygen Concentration - - Weight 89.8 kg (198 lb) 12/17/2019 10:51 AM CDT Height 180.3 cm (5' 11) 12/17/2019 10:51 AM CDT Body Mass Index 27.62 12/17/2019 10:51 AM CDT Plan of Treatment Health Maintenance Due Date Last Done Comments COLOGUARD (AGES 45-75) - COL ON CA SCREENING 1962 COLON MONITORING 1962 COLONOSCOPY - COLON CA SCREENING 1962 CT COLONOGRAPHY - COLON CA SCREENING 1962 Colorectal Cancer Screening 1962 FIT - COLON CA SCREENING 1962 FLEX SIG - COLON CA SCREENING 1962 LIPID TESTING 1962 HIV SCREENING 1977 HEPATITIS C SCREENING 01/30/1980 DTAP/TDAP/TD VACCINES (1 - Tdap) 1981 PNEUMOCOCCAL VACCINE 50+ (1 of 1 - PCV) 02/04/2012 ZOSTER VACCINE (1 of 2) 02/04/2012 SCREENING FOR DIABETES 08/08/2022 08/08/2019 COVID-19 VACCINE (1 - 2023-2 5 season) 2024 DEPRESSION SCREENING 10/03/2024 INFLUENZA VACCINE (Season Ended) 2025 Respiratory Syncytial Virus (RSV) Vaccine Pt: or over 60 yrs (1 - 1-dose 75+ series) 2037 HEPATITIS B VACCINE Aged Out No longe r eligible based on patient's age to complete this topic HIB VACCINE Aged Out No longer eligi ble based on patient's age to complete this topic HPV VACCINE Aged Out No longer eligi ble based on patient's age to complete this topic MENINGOCOCCAL (Group B) VACC INE SHARED DECISION-MAKING Aged Out No longer eligibl e based on patient's age to complete this topic MENINGOCOCCAL GROUPS A/C/Y/W VACCINE Aged Out No longer eligible b ased on patient's age to complete this topic [place] [address] [facility]
--- OUTSIDE RECORDS SUMMARY | 2025-03-06 13:36 | XMS_ITS | Referral Summary ---
Author Organization [address] Address [address] [place] [id number] Care Team Providers Care Corn Breeder Name Role Phone Ken Johnson MD Primary [...] on file Legal Sex Male 1:24 PM SUPERVISOR HOT DIP PLATING Gender Identity Not on file Sexual Orientation Not on file Last Filed Vital Signs Vital Sign Reading Time Taken Comments Blood Pressure 161/85 09/13/2024 9:07 AM SUPERVISOR HOT DIP PLATING Pulse 66 09/13/2024 9:07 AM SUPERVISOR HOT DIP PLATING Temperature 36.8 C (98.2 F) 09/13/2024 9:07 AM SUPERVISOR HOT DIP PLATING Respiratory Rate 20 09/13/2024 9:07 AM SUPERVISOR HOT DIP PLATING Oxygen Saturation 98% 09/13/2024 9:07 AM SUPERVISOR HOT DIP PLATING Inhaled Oxygen Concentration - - Weight 87.1 kg (192 lb) 09/13/2024 9:07 AM SUPERVISOR HOT DIP PLATING Height 180.3 cm (5' 11) 09/13/2024 9:07 AM SUPERVISOR HOT DIP PLATING Body Mass Index 26.78 09/13/2024 9:07 AM SUPERVISOR HOT DIP PLATING Plan of Treatment Not on file Insurance [facility] [employer] Care Teams Corn Breeder Relationship Specialty Start Date End Date Ken Johnson MD [address] [place] [address] PCP - General Family Practice 09/13/24
--- OUTSIDE RECORDS SUMMARY | 2025-03-06 13:36 | XMS_ITS | Clinical Summary ---
Author Organization [employer] [facility] Address [address] [place] [address] Care Team Providers Care Meat Washer Name Role Phone Unavailable Primary Care Provider Unavailabl e Allergies No known active allergies Medications triamcinolone acetonide (KENALOG) 0.1 % Cream Apply topically 2 (two) times a day for 10 days 80 Gram 05/17/2024 11:23 AM CDT Active Social History Tobacco Use Types Packs/Day Years Used Date Smoking Tobacco: Never Assessed Sex and Gender Information Value Date Recorded Sex Assigned at Not on file Legal Sex Male 11:18 AM CDT Gender Identity Not on file Sexual Orientation Not on file Plan of Treatment Health Maintenance Due Date Last Done Comments DTAP/TDAP/TD VACCINES (1 - Tdap) 1981 COLORECTAL SCREENING 2007 Colorectal Cancer Screening 2007 FIT-DNA Q 3 years 2007 FIT/FOBT Q 1 year 2007 Flex Sig/CT Colonography Q 5 years 2007 ZOSTER VACCINE (1 of 2) 02/04/2012 INFLUENZA VACCINE (#1) 2024 RSV VACCINE (60+ or ) (1 - 1-dose 75+ series) 2037 Insurance RX [facility] [employer]
[2025-03-06 22:09] LABS: Hemoglobin A1C 5.4 % (<5.7)
== END 2025-03-06 13:35 | disposition home or self-care (01) ==
LOC: ANHGOSHLAB 13:34
PROVIDERS: PCP Family Medicine; Visit Provider Family Medicine
DX: R73.03 Prediabetes (principal)
CPT/HCPCS: 36415; 83036

== ENCOUNTER 2025-06-24 08:06 | Outpatient (CLI) | payer OTHER, SELFPAY ==
--- OUTSIDE RECORDS SUMMARY | 2025-06-24 08:38 | XMS_ITS | Clinical Summary ---
Author Organization [employer] [facility] Address [address] [place] [id number] Care Team Providers Care Contact Center Engineer Name Role Phone Unavailable Primary Care Provider Unavailabl e Allergies No known active allergies Medications triamcinolone acetonide (KENALOG) 0.1 % Cream Apply topically 2 (two) times a day for 10 days 80 Gram 05/17/2024 11:23 AM CDT Active Encounters Date Type Department Care Team Description 04/17/2025 External Device Data [facility] ABSTRACTION Provider, Abstract from Last 3 Months Social History Tobacco Use Types Packs/Day Years [...] (1 of 2) 02/04/2012 INFLUENZA VACCINE (#1) 2025 RSV VACCINE (60+ or ) (1 - 1-dose 75+ series) [address] [place] [id number] [facility]
--- OUTSIDE RECORDS SUMMARY | 2025-06-24 08:38 | XMS_ITS | Clinical Summary ---
Author Organization [facility] [address] Address [address] [place] [phone] Care Team Providers Care Steel Heater Name Role Phone Ken Johnson MD Primary [...] on file Legal Sex Male 1:24 PM ASSEMBLER 1ST SHIFT Gender Identity Not on file Sexual Orientation Not on file Last Filed Vital Signs Vital Sign Reading Time Taken Comments Blood Pressure 161/85 09/13/2024 9:07 AM ASSEMBLER 1ST SHIFT Pulse 66 09/13/2024 9:07 AM ASSEMBLER 1ST SHIFT Temperature 36.8 C (98.2 F) 09/13/2024 9:07 AM ASSEMBLER 1ST SHIFT Respiratory Rate 20 09/13/2024 9:07 AM ASSEMBLER 1ST SHIFT Oxygen Saturation 98% 09/13/2024 9:07 AM ASSEMBLER 1ST SHIFT Inhaled Oxygen Concentration - - Weight 87.1 kg (192 lb) 09/13/2024 9:07 AM ASSEMBLER 1ST SHIFT Height 180.3 cm (5' 11) 09/13/2024 9:07 AM ASSEMBLER 1ST SHIFT Body Mass Index 26.78 09/13/2024 9:07 AM ASSEMBLER 1ST SHIFT Plan of Treatment Health Maintenance Due Date Last Done Comments Colon Cancer Screening-Colonoscopy 1962 Depression Screening 1962 Hepatitis C Screening 1962 Prostate Cancer Screening-PSA 1962 Hepatitis B Screening 02/04/1980 Regular Well Visit/Exam 18-64 02/04/1980 Zoster Vaccine (1 of 2) 02/04/2012 Influenza Vaccine (#1) 2025 , 07/29/2022, 07/09/2021, Additional history exists DTaP/Tdap/Td Vaccine (3 - Td or Tdap) 04/24/2033 04/24/2023, 10/10/2012, 05/24/2003 Pneumococcal vaccine <65 Aged Out No longer eligible based on patient's age to complete this [place] [address] [facility] [employer] Care Teams Steel Heater Relationship Specialty Start Date End Date Ken Johnson MD [facility] [place] [address] PCP - General Family Practice 09/13/24
--- OUTSIDE RECORDS SUMMARY | 2025-06-24 08:39 | XMS_ITS | Clinical Summary ---
Author Organization [facility] [employer] Address [address] [place] [address] Care Team Providers Care Biller Name Role Phone Unavailable Primary Care Provider Unavailabl e Source Comments [facility] [employer],non-owned Affiliates and Associated Physician Practices is amultiple site organization consisting of ambulatory clinics and hospital sitesin [place], [place], [place] and [place]. This disclosure is being madepursuant to the Care Everywhere program and may not contain all information available regarding this patient. Last updated 18.[facility] [employer] Allergies No known active allergies Medications * [...] on file Legal Sex Male 10:38 AM EMPLOYEE PLACEMENT SPECIALIST Gender Identity Not on file Sexual Orientation Not on file Last Filed Vital Signs Vital Sign Reading Time Taken Comments Blood Pressure 118/78 12/17/2019 10:51 AM CDT Pulse 62 12/17/2019 10:51 AM CDT Temperature 36.9 C (98.4 F) 12/17/2019 10:51 AM CDT Respiratory Rate 16 11/22/2018 2:42 PM EMPLOYEE PLACEMENT SPECIALIST Oxygen Saturation 97% 12/17/2019 10:51 AM CDT [...] (1 of 2) 02/04/2012 SCREENING FOR DIABETES 12/17/2019 DEPRESSION SCREENING 10/03/2024 COVID-19 VACCINE (1 - 2023-2 5 season) 2025 INFLUENZA VACCINE (#1) 2025 Respiratory Syncytial Virus (RSV) Vaccine Pt: [...] complete [place] [address] [facility] [address] [place] [address] [facility] [place] [address] [facility]
--- OUTSIDE RECORDS SUMMARY | 2025-06-24 08:39 | XMS_ITS | Clinical Summary ---
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 Gender Identity Not on file Sexual Orientation Not on file Plan of Treatment Health Maintenance Due Date Last Done Comments Annual Physical 1963 Hepatitis C 02/04/1980 DTaP, Tdap and Td Vaccines ( 1 - Tdap) 1981 Pneumococcal Vaccine: 50+ Ye ars (1 of 1 - PCV) 02/04/2012 Zoster Vaccines (1 of 2) 02/04/2012 COVID-19 Vaccine (1 - 2023-2 5 season) 2025 Colorectal Cancer Screening Colonoscopy (10 Years) 04/15/2030 04/15/2020 RSV Immunization or 60+ Years (1 - 1-dose 75+ series) 2037 Meningococcal B Vaccine Aged Out No l onger eligible based on patient's age to complete this topic Meningococcal Vaccine Aged Out No marichuy rand eligible based on patient's age to complete this topic RSV Immunizations Under 20 Months Aged Out No longer eligible based on patient's age to complete this topic Procedures Procedure Name Priority Date/Time Associated Diagnosis Comments COLONOSCOPY GENERIC (SCAN ORDER) 04/15/2020 from Last 3 Months or Most Recently Relevant to Health Maintenance Results * COLONOSCOPY GENERIC (04/15/2020) 04/15/2020 Narrative 04/15/2020 Ordered by an unspecified provider. us Documents Scanned SCANNING Final Result from Last 3 Months or Most Recently Relevant to Health Maintenance Care Teams Saxophone Assembler Relationship Specialty Start Date End Date None, Provider, PCP - General 08/07/19
[2025-06-24 13:04] LABS: Alanine Aminotransferase 44 U/L (6-50); Albumin Level 4.5 g/dL (3.5-5.1); Alkaline Phosphatase 81 U/L (38-126); Anion Gap 7 mmol/L (4-12); Aspartate Amino Transferase 75 U/L (17-59); Bilirubin,Total 1.2 mg/dL (0.2-1.3); Blood Urea Nitrogen 18 mg/dL (9-20); Calcium 9.0 mg/dL (8.4-10.2); Carbon Dioxide 28 mmol/L (22-30); Chloride 103 mmol/L (98-107); Cholesterol 171 mg/dL (0-200); Estimated Glomerular Filt Rate > 60; Glucose 107 mg/dL (65-110); HDL Direct 41 mg/dL; Magnesium 2.3 mg/dL (1.6-2.3); Potassium 4.1 mmol/L (3.4-5.0); Sodium 138 mmol/L (137-145); Total Protein 8.0 g/dL (6.3-8.2); Triglycerides 93 mg/dL (<150)
[2025-06-24 13:37] LABS: Thyroid Stimulating Hormone Reflex 1.010 uIU/mL (0.465-4.68)
[2025-06-24 13:40] LABS: Prostate Specific Antigen 0.8 ng/mL (< OR = 4.0)
[2025-06-24 13:48] LABS: Hematocrit 47.5 % (42.0-52.0); Hemoglobin 16.0 g/dL (14.0-18.0); Immature Granulocyte Percent A 1.0 % (0-0.5); Lymphocytes Absolute Auto 2.61 K/mm3 (0.9-3.2); Mean Corpuscular HGB Conc 33.7 g/dl (32-36); Mean Corpuscular Hemoglobin 30.8 pg (26-34); Mean Corpuscular Volume 91.5 fl (80-100); Nucleated Red Blood Cells Absolute Auto 0.000 K/mm3 (0.0-0.012); Nucleated Red Blood Cells Perc 0.0 % (0.0-0.2); Platelet Count Result 251 k/mm3 (150-375); Red Blood Count 5.19 M/mm3 (4.6-6.20); White Blood Count 6.9 K/mm3 (4.5-10.0)
[2025-06-24 14:00] LABS: Vitamin B12 485.0 pg/mL (239-931)
[2025-06-24 14:39] LABS: Hemoglobin A1C 5.7 % (<5.7)
== END 2025-06-24 08:07 | disposition home or self-care (01) ==
LOC: ANHGOSHLAB 08:08
PROVIDERS: PCP Family Medicine; Visit Provider Nurse Practitioner
DX: K20.0 Eosinophilic esophagitis (principal); K21.9 Gastro-esophageal reflux disease without esophagitis; I10 Essential (primary) hypertension; R73.03 Prediabetes; Z00.00 Encounter for general adult medical examination without abnormal findings; E78.5 Hyperlipidemia, unspecified; E55.9 Vitamin D deficiency, unspecified; Z12.5 Encounter for screening for malignant neoplasm of prostate
CPT/HCPCS: 36415; 80053; 80061; 82306; 82607; 83036; 83735; 84153; 84443; 85025; G0103

== ENCOUNTER 2025-08-06 09:34 | Outpatient (CLI) | payer OTHER, SELFPAY ==
--- OUTSIDE RECORDS SUMMARY | 2025-08-06 10:41 | XMS_ITS | Clinical Summary ---
Author Organization [facility] Address [address] [place] [address] Care Team Providers Care Programming Engineer Name Role Phone Unavailable Primary Care [...]
--- OUTSIDE RECORDS SUMMARY | 2025-08-06 10:41 | XMS_ITS | Clinical Summary ---
Author Organization [facility] [employer] Address [address] [place] [address] Care Team Providers Care Field Hand Name Role Phone Unavailable Primary Care Provider Unavailabl e Source Comments [facility] [employer],non-owned Affiliates and Associated Physician Practices is amultiple site organization consisting of ambulatory clinics and hospital sitesin [place], [place], [place] and [place]. This disclosure is being madepursuant to the Care Everywhere program and may not contain all information available regarding this patient. Last updated 18.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 Gender Identity Not on file Sexual Orientation Not on file Last Filed Vital Signs Vital Sign Reading Time Taken Comments Blood Pressure 118/78 12/17/2019 10:51 AM CDT Pulse 62 12/17/2019 10:51 AM CDT Temperature 36.9 C (98.4 F) 12/17/2019 10:51 AM CDT Respiratory Rate 16 11/22/2018 2:42 PM HEALTH IT SPECIALIST Oxygen Saturation 97% 12/17/2019 10:51 AM [...] complete [place] [address] [facility] [address] [address] [facility] [place] [address] [facility]
--- OUTSIDE RECORDS SUMMARY | 2025-08-06 10:41 | XMS_ITS | Clinical Summary ---
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 Gender Identity Not on file Sexual Orientation Not on file Last Filed Vital Signs Vital Sign Reading Time Taken Comments Blood Pressure 161/85 09/13/2024 9:07 AM CARD FEEDER Pulse 66 09/13/2024 9:07 AM CARD FEEDER Temperature 36.8 C (98.2 F) 09/13/2024 9:07 AM CARD FEEDER Respiratory Rate 20 09/13/2024 9:07 AM CARD FEEDER Oxygen Saturation 98% 09/13/2024 9:07 AM CARD FEEDER Inhaled Oxygen Concentration - - Weight 87.1 kg (192 lb) 09/13/2024 9:07 AM CARD FEEDER Height 180.3 cm (5' 11) 09/13/2024 9:07 AM CARD FEEDER Body Mass Index 26.78 09/13/2024 9:07 AM CARD FEEDER Plan of Treatment Health Maintenance Due Date Last Done Comments Colon Cancer Screening-Colonoscopy 1962 Depression Screening 1962 Hepatitis C Screening 1962 Prostate Cancer Screening-PSA 1962 Hepatitis B Screening 02/04/1980 Regular Well Visit/Exam 18-64 02/04/1980 Zoster Vaccine (1 of 2) 02/04/2012 Influenza Vaccine (#1) 2025 3, 07/29/2022, 07/09/2021, Additional history exists DTaP/Tdap/Td Vaccine (3 - Td or Tdap) 04/24/2033 04/24/2023, 10/10/2012, 05/24/2003 Pneumococcal vaccine <65 Aged Out No longer eligible based on patient's age to complete this topic Insurance DR [address], [facility] [address] [place] [address] [facility] Care Teams Cryptanalyst Relationship Specialty Start Date End Date Ken Johnson MD [address] [facility] [address] [address] PCP - General Family Practice 09/13/24
--- OUTSIDE RECORDS SUMMARY | 2025-08-06 10:41 | XMS_ITS | Clinical Summary ---
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 Gender Identity Not on file Sexual Orientation Not on file Plan of Treatment Health Maintenance Due Date Last Done Comments Annual Physical 1965 Hepatitis C 02/04/1980 DTaP, Tdap and Td Vaccines ( 1 - Tdap) 1981 Pneumococcal Vaccine: 50+ Ye ars (1 of 1 - PCV) 02/04/2012 Zoster Vaccines (1 of 2) 02/04/2012 COVID-19 Vaccine ( - 2024-2 6 season) 2025 Influenza Adult (#1) 2025 Colorectal Cancer Screening Colonoscopy (10 Years) 04/15/2030 04/15/2020 RSV Immunization or 60+ Years (1 - 1-dose 75+ series) 2037 Hepatitis A Vaccines Aged Out No long er eligible based on patient's age to complete this topic Meningococcal B Vaccine Aged Out No l [...] Recently Relevant to Health Maintenance Care Teams Aircraft Hydraulic Equipment Mechanic Relationship Specialty Start Date End Date None, Provider, PCP - General 08/07/19
[2025-08-06 13:26] LABS: Alanine Aminotransferase 38 U/L (6-50); Albumin Level 4.6 g/dL (3.5-5.1); Alkaline Phosphatase 77 U/L (38-126); Anion Gap 9 mmol/L (4-12); Aspartate Amino Transferase 70 U/L (17-59); Bilirubin,Total 0.9 mg/dL (0.2-1.3); Blood Urea Nitrogen 21 mg/dL (9-20); Calcium 9.2 mg/dL (8.4-10.2); Carbon Dioxide 25 mmol/L (22-30); Chloride 105 mmol/L (98-107); Estimated Glomerular Filt Rate > 60; Glucose 107 mg/dL (65-110); Potassium 4.3 mmol/L (3.4-5.0); Sodium 139 mmol/L (137-145); Total Protein 7.9 g/dL (6.3-8.2)
== END 2025-08-06 09:35 | disposition home or self-care (01) ==
LOC: ANHGOSHLAB 09:34
PROVIDERS: PCP Family Medicine; Visit Provider Family Medicine
DX: R74.01 Elevation of levels of liver transaminase levels (principal); I10 Essential (primary) hypertension
CPT/HCPCS: 36415; 80053